=== PATIENT | male | born 1980 | race Caucasian/White ===

== ENCOUNTER 2019-07-10 23:40 | Emergency (ER) | payer SELFPAY ==
--- NOTE | 2019-07-11 00:06 | ED.PDOC ---
History of Present Illness - General Chief Complaint: Lower Extremity Injury Stated Complaint: swollen leg, knot in groin Time Seen by Provider: 07/10/19 23:47 Source: patient, family Exam Limitations: no limitations - History of Present Illness Initial Comments: Pt says he has a history of DVT and PE in 2003. Pt has had chronic leg swelling in left leg since dx of DVT. Pt was on coumadin for 1 year and then d/c'ed. Pt denies SOB or CP. He denies significant cough or fever. Pt says no recent injuries. He came in today because he felt he had acute on chronic swelling in left leg and felt that he had a "knot" in his upper left thigh. Pt also says that he has had issues with swelling since stopping coumadin and has had nl US on that occasion. Occurred: this morning Improving Factors: nothing Worsening Factors: nothing Review of Systems - Review of Systems Constitutional: States: no symptoms reported. Denies: chills, fever EENTM: States: no symptoms reported Respiratory: States: no symptoms reported. Denies: cough, short of breath, wheezing Cardiology: States: edema - left leg. Denies: chest pain, palpitations, syncope Gastrointestinal/Abdominal: States: no symptoms reported. Denies: abdominal pain, constipation, diarrhea, nausea, vomiting Genitourinary: States: no symptoms reported Musculoskeletal: Denies: joint pain, joint swelling, muscle pain, muscle stiffness Skin: States: no symptoms reported. Denies: change in color, lesions Neurological: States: no symptoms reported Physical Exam - Physical Exam General Appearance: Alert, Comfortable, No apparent distress Cardiovascular/Respiratory: regular rate, rhythm, no M/R/G, normal peripheral pulses, normal breath sounds, no respiratory distress Gastrointestinal/Abdominal: non-tender, no organomegaly, no hernia Thigh/Hip: soft tissue tenderness, swelling Leg: soft tissue tenderness, swelling Neuro/Tendon: normal sensation, normal motor functions Mental Status: alert, oriented x 3 Skin: normal color Progress - Progress Progress: 07/11/19 00:07 US not available at this time. I offered to transfer to facility that offered US, he declined. Pt does not have a PCP. I filled out an order for an outpt doppler on left leg to be performed tomorrow. I encouraged him to take ASA 325mg daily until we know US results. I did not feel it was appropriate to discharge on anticoagulation until US results. Departure - Departure Clinical Impression: Leg pain, left, History of DVT (deep vein thrombosis), History of pulmonary embolism Time of Disposition: 00:10 Disposition: Discharge to Home or Self Care Condition: Good Departure Forms: ED Discharge - Pt. Copy, Patient Portal Self Enrollment Diet: resume usual diet Activity: walking as tolerated Additional Instructions: Return for outpatient doppler of left leg tomorrow
[2019-07-11 00:11] VITALS: TEMP 96.8; O2SAT 97
[2019-07-11 00:17] VITALS: BP 168/100
== END 2019-07-11 00:17 | disposition home or self-care (01) ==
LOC: ER 23:40
DX: M79.652 Pain in left thigh (principal); R60.0 Localized edema; Z86.711 Personal history of pulmonary embolism; Z86.718 Personal history of other venous thrombosis and embolism

== ENCOUNTER → 2020-02-06 | Outpatient (CLI) | payer BC ==
--- NOTE | 2020-02-06 16:45 | US ---
EXAM DESCRIPTION: Gall Bladder: ULTRASOUND. CLINICAL HISTORY: RIGHT UPPER QUADRANT PAIN COMPARISON: None. TECHNIQUE: Transabdominal scanning: Waddell-scale and Doppler modes.. Technically difficult study due to patient large body habitus. FINDINGS: Gallbladder: It is small in size and contains multiple echogenic gallstones in the dependent portion of the gallbladder. Some demonstrate acoustic shadowing. Largest caliber 1 cm. No fluid around the gallbladder. No wall thickening. 2.2 mm. Non-tender with transducer pressure. Common bile duct: caliber 4.0 mm within normal limits. Liver: Heterogeneously increased echogenicity; limited visualization of the posterior liver and posterior soft tissues. Contour liver capsule smooth where seen. No fluid around the liver. Intrahepatic biliary ducts normal caliber. Doppler hepatopedal flow portal vein.. 8 mm normal caliber. Long axis right lobe 14.8 cm. Pancreas: normal size Normal echogenicity. Duct not seen. Aorta: 1.6 cm normal caliber. Right kidney: long axis is 12.0 cm; volume is 250.5 mL.. Normal cortical thickness and echogenicity. No echogenic stones. No hydronephrosis. IMPRESSION: 1. Cholelithiasis of the gallbladder with no tenderness. Normal wall thickness and no fluid. Normal caliber common bile duct. 2. Fatty liver normal size and vascularity. No ascites. Pancreas is negative. 3. Normal caliber of the aorta. Right kidney is unremarkable. Electronically signed by: Mello King MD 02/06/2020 4:43 PM CDT
== END ==
LOC: US 14:52
PROVIDERS: ATTEND Nurse Practitioner Family
DX: K80.20 Calculus of gallbladder without cholecystitis without obstruction (principal); K76.0 Fatty (change of) liver, not elsewhere classified

== ENCOUNTER 2020-03-01 09:41 | Emergency (ER) | payer BC ==
[2020-03-01] MEDS ORDERED: SODIUM CHLORIDE 0.9% (FLUSH) 10 ML SYG IV PRN (09:54)
[2020-03-01] MEDS ORDERED: SODIUM CHLORIDE 0.9% 1000ML 1,000 ML IVS PRN (09:54)
[2020-03-01] MEDS ORDERED: MORPHINE SULFATE INJ 10 MG/ML VIAL IV ONE ×2 (09:56→11:51)
[2020-03-01] MEDS ORDERED: ONDANSETRON INJ 4 MG/2 ML VIAL IV ONE (09:56)
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
[2020-03-01] MEDS ORDERED: PROMETHAZINE HCL INJ 25 MG/ML VIAL IM ONE (11:51)
--- NOTE | 2020-03-01 11:55 | CT ---
EXAM: CT ABDOMEN AND PELVIS WITH CONTRAST HISTORY: Right upper quadrant/epigastric pain, 2wks postop after laparoscopic cholecystectomy. TECHNIQUE: Axial CT images of the abdomen and pelvis were obtained with intravenous contrast and without oral contrast. Sagittal and coronal reformats were rendered. The CT exam was performed using one or more of the following dose reduction techniques: Automated exposure control, adjustment of the mA and/or kV according to patient size, and/or use of iterative reconstruction technique. COMPARISON: Gallbladder ultrasound from 01/07/2020. FINDINGS: ABDOMEN: Lung bases: Clear. Liver: No focal lesion. No intrahepatic biliary duct dilatation. Gallbladder: Cholecystectomy clips in place. Very mild stranding in the gallbladder fossa is within normal limits status post recent surgery. No postsurgical fluid collection or biloma. Spleen: Unremarkable. Pancreas: Normal. Adrenal glands: Normal. Kidneys: Subcentimeter hypodensities in both kidneys are likely cysts. Oval 1.5 x 1 cm hypodensity in the interpolar region of the left kidney, not definitely characterized as a complex cyst or solid lesion (Hounsfield units 40). No hydronephrosis. Vasculature: No aortic aneurysm or dissection. Lymph nodes: No lymphadenopathy. Bowel: Unremarkable. No bowel obstruction. Appendix: Normal. PELVIS: Bladder: No bladder wall thickening. BONES: No acute bone abnormality of the abdomen or pelvis. IMPRESSION: 1. Cholecystectomy clips in place with expected mild postsurgical changes. Mild postsurgical fluid collection or biloma. 2. No acute abnormalities. 3. Small 1.5 cm possible proteinaceous/hemorrhagic cyst in the left kidney. This can be further assessed with a nonemergent renal ultrasound to exclude a solid lesion. Electronically signed by: Tevin Owen MD 03/01/2020 11:54 AM CDT
[2020-03-01 12:26] VITALS: O2SAT 99
[2020-03-01 13:34] VITALS: BP 122/92; TEMP 98
== END 2020-03-01 12:50 | disposition home or self-care (01) ==
LOC: ER 09:41
DX: R10.84 Generalized abdominal pain (principal); R11.2 Nausea with vomiting, unspecified; R19.7 Diarrhea, unspecified; I11.0 Hypertensive heart disease with heart failure; I50.9 Heart failure, unspecified; E11.9 Type 2 diabetes mellitus without complications; Z90.49 Acquired absence of other specified parts of digestive tract
CPT/HCPCS: 36415; 74177; 80053; 83690; 85025; J2270; J2405; J2550; J7030

== ENCOUNTER → 2020-03-05 | Outpatient (CLI) | payer BC ==
--- NOTE | 2020-03-06 15:14 | NM ---
NUCLEAR MEDICINE GASTRIC EMPTYING 4 HOUR HISTORY: Delayed gastric emptying, dyspepsia, nausea and vomiting with almost every meal. COMPARISON: None TECHNIQUE: Patient was fed 1.1mCi technetium 99m sulfur colloid mixed with 2 scrambled egg whites, one toast and jelly, and 4 ozs water, using the standard meal. FINDINGS/IMPRESSION: Percent gastric retention is as follows: 1 hour: 55% (normal equals 30-90%) 2 hour: 37% (upper limit of normal is 60%) 3 hour: Not performed% (upper limit of normal is 30%) 4 hour: 18% (upper limit of normal is 10%) Gastric emptying half-time is not calculated. Mildly abnormal increased gastric retention at 4 hours. Electronically signed by: Mello King MD 03/06/2020 3:13 PM CDT
== END | disposition home or self-care (01) ==
LOC: NM 08:50
PROVIDERS: ATTEND Nurse Practitioner Family
DX: K30 Functional dyspepsia (principal)
CPT/HCPCS: 78264; A9541

== ENCOUNTER 2020-05-25 19:59 | Emergency (ER) | payer SELFPAY ==
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
--- NOTE | 2020-05-25 21:43 | RAD ---
EXAM: XR Right Toes, 2 or More Views CLINICAL HISTORY: The patient is 39 years old and is Male; infection TECHNIQUE: Frontal, lateral and oblique views of the toes of the right foot. COMPARISON: No relevant prior studies available. FINDINGS: BONES/JOINTS: A bone fragment is noted adjacent to the first distal phalanx, donor site uncertain. Suggestion of irregularity of the first distal phalanx is noted. No dislocation. SOFT TISSUES: Diffuse edema and subcutaneous air involving the first digit is present. Open wound along the first digit is present. No radiopaque foreign body. IMPRESSION: 1. Extensive soft tissue swelling with subcutaneous air and open wound involving the first digit with questionable underlying osteomyelitis involving the first distal phalanx. Further evaluation with an MRI could be performed. 2. Bone fragment adjacent to the first distal phalanx, donor site uncertain. Electronically signed by: Risa Arevalo MD 05/25/2020 9:41 PM [facility]
[2020-05-25] MEDS ORDERED: VANCOMYCIN HCL INJ 1,000 MG, VANCOMYCIN HCL INJ 500 MG in SODIUM CHLORIDE 0.9% 250ML 25... IVPB ONE (21:45)
[2020-05-25] MEDS ORDERED: SODIUM CHLORIDE 0.9% 1000ML 1,000 ML IVS ONE (21:52)
[2020-05-25 22:56] VITALS: O2SAT 98
[2020-05-26 00:33] VITALS: BP 145/90; TEMP 97.1
== END 2020-05-26 00:10 | disposition left against medical advice (07) ==
LOC: ER 19:59
DX: M86.9 Osteomyelitis, unspecified (principal); Z53.29 Procedure and treatment not carried out because of patient's decision for other reasons; E11.621 Type 2 diabetes mellitus with foot ulcer; L97.519 Non-pressure chronic ulcer of other part of right foot with unspecified severity; E11.52 Type 2 diabetes mellitus with diabetic peripheral angiopathy with gangrene; I96 Gangrene, not elsewhere classified; I11.0 Hypertensive heart disease with heart failure; K21.9 Gastro-esophageal reflux disease without esophagitis; I50.9 Heart failure, unspecified; Z79.4 Long term (current) use of insulin; Z79.899 Other long term (current) drug therapy; Z89.9 Acquired absence of limb, unspecified; Z87.891 Personal history of nicotine dependence
CPT/HCPCS: 36415; 73660; 80053; 85025; 86140; 87040; 87070; J3370; J7030; J7050

== ENCOUNTER → 2020-08-12 | Outpatient (CLI) | payer OTHER | LOC: LAB.NP 13:15 | PROVIDERS: ATTEND Internal Medicine Infectious Disease | DX: M86.171 Other acute osteomyelitis, right ankle and foot (principal) ==

== ENCOUNTER → 2020-08-17 | Outpatient (CLI) | payer OTHER | LOC: LAB.NP 15:12 | PROVIDERS: ATTEND Internal Medicine Infectious Disease | DX: M86.171 Other acute osteomyelitis, right ankle and foot (principal) ==

== ENCOUNTER → 2020-08-24 | Outpatient (CLI) | payer OTHER | LOC: LAB.NP 15:17 | PROVIDERS: ATTEND Internal Medicine Infectious Disease | DX: M86.171 Other acute osteomyelitis, right ankle and foot (principal) ==

== ENCOUNTER → 2020-09-01 | Outpatient (CLI) | payer OTHER | LOC: LAB.O 15:36 | PROVIDERS: ATTEND Internal Medicine Infectious Disease | DX: M86.171 Other acute osteomyelitis, right ankle and foot (principal) ==